=== PATIENT | female | born 1975 | race African-American/Black ===

== ENCOUNTER 2023-08-17 21:41 | Inpatient (IN) ==
--- NOTE | 2023-08-17 22:44 | Emergency Department Note ---
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 The patient states that about a week ago, she developed shortness of breath and fevers. She states she stayed in a hotel room over the weekend and when the fever broke on Monday, she returned to the road. She states that she has still had chills and persistent shortness of breath. She ran out of her second albuterol inhaler she has gone through 1 about a month about 2 to 3 days ago. She states that she has been using Advair and OTC Primatene mist frequently for her shortness of breath symptoms. Today when she got to a store, she states by the time she got from her truck to the front door of the store, she had to send somebody to her truck to get the OTC inhaler for her to get back. She states she is having pain in her chest. She has not had any further fevers. She states that she has been hospitalized frequently for pneumonia intermittently throughout the past year and feels that she is still experiencing pneumonia symptoms. The patient states her most recent hospitalization was in May in [place]. Pt. reports her O2 has been low. She states she is coughing up "heavy mucous". REVIEW OF SYSTEMS: A 10 system review of systems was performed with positives and pertinent negatives listed in the history of present illness. All other systems were reviewed and are negative. ALLERGIES: NKDA PHYSICAL EXAM: VITALS: Vitals are noted on the nurse's note and reviewed by myself. Patient is hypoxic with an O2 saturation of 88% on room air. She is afebrile. GENERAL: This is a 48 year old female, in no acute distress, nondiaphoretic, well-developed well-nourished. SKIN: The skin was without rashes, erythema, edema, or bruising. There is no tenting of the skin. Capillary refill less than 2 seconds. HEAD: Normocephalic atraumatic. EYES: Conjunctivae without injection, sclerae without icterus. NOSE: Patent, turbinates without inflammation or discharge. No sinus tenderness. MOUTH: Mucous membranes moist. Tonsils are not enlarged. Pharynx without erythema or exudate. Uvula midline. Airway patent. Tongue does not deviate. NECK: Supple without nuchal rigidity. No lymphadenopathy. Cervical spine is nontender. No JVD. HEART: Regular rate and rhythm without murmurs gallops or rubs. LUNGS: Diffuse wheezing and rhonchi. +Retractions and accessory muscle use. Pt. is tripoding. MUSCULOSKELETAL: No muscle atrophy, erythema, or edema noted. Full range of motion without joint tenderness in all extremities. No tenderness to palpation. Normal gait. Strength 5/5 throughout. Negative Homans' sign bilaterally NEURO: Patient was alert and oriented to person place and time. Normal sensation to light and sharp touch. Deep tendon reflexes 2+ throughout. No focal neurological deficits. An order was placed for continuous cardiac care unit nurse. The monitor showed a sinus tachycardia at a ventricular rate of 102 bpm, per my interpretation. EKG was reviewed by myself and found to be Sinus Tachycardia at a rate of 103 beats per minute and per my interpretation reveals no ST elevation or depression. No T wave inversion. No prior EKG available for comparison. Imaging as interpreted by myself and the radiologist revealed no acute findings on CXR, CTA chest with concern for patchy opacities, likely consistent with pneumonia, with radiologist interpretation as above. I agree with the radiologist's findings as based upon my independent interpretation. EMERGENCY DEPARTMENT COURSE: The patient was seen and evaluated as above. The patient presents with progressing shortness of breath over several weeks. 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 The patient does have a history of pneumonia, COPD, and asthma. She states that she has not been to see her PCP or get on any maintenance medications for greater than a year. On initial examination, the patient was tachypneic, tripoding, using accessory muscles for breathing. Lungs with coarse breath sounds, wheezing and rhonchi diffusely. Patient medicated with IV Solu-Medrol, fluids, DuoNeb treatment. IV access obtained, labs drawn. Per my interpretation, no leukocytosis, anemia, thrombocytopenia. Renal, hepatic function, and electrolytes without significant abnormality. INR 1.1. VBG without acute abnormality. Troponin less than 2.3. Respiratory bio fire testing negative for acute abnormality Patient did have a recent febrile illness prior to the onset of the shortness of breath. She has run out of her albuterol inhalers. She has been using Primatene mist and Advair without resolution. Patient was hypoxic on initial evaluation. This did seem to improve with administration of Solu-Medrol and DuoNeb treatment. On reevaluation, the diffuse wheezing has improved, but has not resolved. The patient was given a second DuoNeb treatment. CT angiogram of the chest was completed and negative for PEs. This did show evidence of scattered irregular patchy groundglass opacities noted throughout the lungs suspicious for bilateral pneumonia. Patient was again reevaluated. She states her breathing feels much better, but she is now complaining of back pain from the bed positioning. She has very mild wheezing diffusely on my examination. She remains tachycardic in the low 100s. She is no longer hypoxic, but is only 90 to 92% on room air. Did recommend admission due to the patient's symptoms I discussed the case [facility] He did agree to see and evaluate the patient for admission. Please see his dictation regarding ongoing management and care of this patient. Case was discussed with the attending physician. I attest that I have personally reviewed the patient medication list. I attest that I have reviewed the patient's blood pressure and it was found to be hypertensive GCS: 15 In the evaluation and treatment of this patient the following differential diagnoses were entertained: Reactive airway disease, pneumonia, pneumothorax, COPD, CHF, infections, cardiac ischemia, pulmonary embolism, musculoskeletal, gastrointestinal, as well as other pathologies. The chart was completed utilizing [employer] Speech voice recognition software. Grammatical errors, random word insertions, pronoun errors, and incomplete sentences are an occasional consequence of this system due to software limitations, ambient noise, and hardware issues. Any formal questions or concerns about the content, text, or information contained within the body of this dictation should be directly addressed to the provider for clarification. Past Med/Surg History Medical History No pertinent past medical history Social History Smoking Status: Current every day smoker Preferred Language: Vietnamese Feels Safe at Home: Yes Allergies Allergies Allergy/AdvReac Type Severity Reaction Status Date / Time No Known Allergies Allergy Verified 08/17/23 23:52 Home Meds Home Medications Medication Instructions Recorded Confirmed albuterol sulfate 90 mcg/actuation 2 puff inhalation DIRECTED PRN 08/17/23 08/17/23 aerosol inhaler Shortness Of Breath Or Wheezing fluticasone 250 mcg-salmeterol 50 1 inh inhalation DAILY 08/18/23 08/18/23 mcg/dose blistr powdr for inhalation Results & Data (ED) Vital Signs Vital Signs - 24 hr 08/17/23 21:45 08/17/23 21:52 08/17/23 22:40 Temperature 36.2 C L Temperature Source Temporal Artery Scan Pulse Rate 117 H 108 H Pulse Rate [Apical] Respiratory Rate 20 Respiratory Effort / Characteristics Non-Labored Spontaneous Respiratory Depth Normal Respiratory Pattern Blood Pressure 106/78 Blood Pressure [Left Arm] Blood Pressure Mean 87 Blood Pressure Mean [Left Arm] Blood Pressure Position [Left Arm] Pulse Oximetry 88 L 88 L Oxygen Delivery Method Room Air Nasal Cannula Oxygen Flow Rate 0 Sepsis Recent Fever Within 48 Hours Yes Sepsis New/Unexplained Change in Mental Status No Sepsis Action Taken by Nursing No Action Required Oxygen Flow Rate - Titration 2 Pulse Oximetry Post Tiitration 100 08/17/23 23:05 08/17/23 23:43 08/18/23 02:02 Temperature Temperature Source Pulse Rate Pulse Rate [Apical] 94 H 102 H Respiratory Rate 24 22 Respiratory Effort / Characteristics Non-Labored Spontaneous Non-Labored Spontaneous Respiratory Depth Normal Normal Respiratory Pattern Regular Regular Blood Pressure Blood Pressure [Left Arm] 129/77 141/94 H Blood Pressure Mean Blood Pressure Mean [Left Arm] 94 109 Blood Pressure Position [Left Arm] Sitting Pulse Oximetry 100 100 91 Oxygen Delivery Method Nasal Cannula Nasal Cannula Room Air Oxygen Flow Rate 3 3 Sepsis Recent Fever Within 48 Hours Sepsis New/Unexplained Change in Mental Status Sepsis Action Taken by Nursing Oxygen Flow Rate - Titration Pulse Oximetry Post Tiitration Laboratory Data 08/17/23 22:30 08/17/23 22:30 Lab Results 08/17/23 08/17/23 Range/Units 22:30 22:58 WBC 9.05 (4.8-10.8) K/ul RBC 5.05 (4.20-5.40) M/uL Hgb 13.9 (12.0-16.0) g/dl Hct 43.8 (37.0-47.0) % MCV 86.7 (80.0-100.0) fL MCH 27.5 (25.0-34.0) pg MCHC 31.7 L (32.0-36.0) g/dL RDW Std Deviation 44.9 (36.4-46.3) fL RDW Coeff of Anjel 14.2 (11.5-14.5) % Plt Count 272 (130-400) K/uL MPV 9.9 (9.4-12.4) fL Immature Gran % (Auto) 0.3 % Neut % (Auto) 51.3 % Lymph % (Auto) 28.3 % [place] % (Auto) 6.0 % Eos % (Auto) 13.3 % Baso % (Auto) 0.8 % Neut # (Auto) 4.65 (1.40-6.50) K/uL Lymph # (Auto) 2.56 (1.20-3.40) K/uL [place] # (Auto) 0.54 (0.11-0.59) K/uL Eos # (Auto) 1.20 H (0.00-0.50) K/uL Baso # (Auto) 0.07 (0.00-0.20) K/uL Immature Gran # (Auto) 0.03 (0.01-0.20) K/uL PT 11.9 (9.0-12.0) Seconds INR 1.1 (0.9-1.1) APTT 31 (21-31) Seconds PTT Ratio 1.1 VBG pH 7.37 (7.36-7.41) VBG pCO2 50 (38-50) mmHg VBG pO2 39 mmHg VBG HCO3 29 mmol/L VBG O2 Saturation < 60.0 % VBG Base Excess 2.7 mEq/L Sodium 141 (136-145) mmol/L Potassium 3.8 (3.5-5.1) mmol/L Chloride 108 H (98-107) mmol/L Carbon Dioxide 26 (21-32) mmol/L Anion Gap 7 (3-11) BUN 10 (6-23) mg/dl Creatinine 0.77 (0.6-1.2) mg/dl Est Cr Clr Drug Dosing 89.2 ml/min Est GFR ( Amer) 104.3 ml/min Est GFR (Non-Af Amer) 90.0 ml/min BUN/Creatinine Ratio 13.0 (10-20) Glucose 97 (70-99(Fasting)) mg/dl Calcium 9.1 (8.6-10.3) mg/dl Total Bilirubin 0.3 (0.2-1.0) mg/dl AST 15 (13-39) U/L ALT 11 (7-52) U/L Alkaline Phosphatase 99 (34-104) U/L Troponin I High Sens < 2.3 (0-14) pg/ml Total Protein 7.6 (6.0-8.3) gm/dl Albumin 4.1 (3.4-5.0) gm/dl Globulin 3.5 (2.5-4.0) gm/dl Albumin/Globulin Ratio 1.2 (0.9-2) Adenovirus (PCR) Not Detected (NotDetected) B. pertussis DNA (PCR) Not Detected (NotDetected) B.parapertussis DNA PCR Not Detected (NotDetected) C. pneumoniae DNA (PCR) Not Detected (NotDetected) Coronavirus OC43 (PCR) Not Detected (NotDetected) Coronavirus HKU1 (PCR) Not Detected (NotDetected) Coronavirus 229E (PCR) Not Detected (NotDetected) SARS-CoV-2 (PCR) Not Detected (NotDetected) Coronavirus NL63 (PCR) Not Detected (NotDetected) Human Metapneumovir PCR Not Detected (NotDetected) Influenza Type A (PCR) Not Detected (NotDetected) Influenza Type B (PCR) Not Detected (NotDetected) M. pneumoniae (PCR) Not Detected (NotDetected) Parainfluenza 1 (PCR) Not Detected (NotDetected) Parainfluenza 2 (PCR) Not Detected (NotDetected) Parainfluenza 3 (PCR) Not Detected (NotDetected) Parainfluenza 4 (PCR) Not Detected (NotDetected) RSV (PCR) Not Detected (NotDetected) Entero/Rhino (PCR) Not Detected (NotDetected) Administered Medications Discontinued Medications Acetaminophen (Acetaminophen 500 Mg Tab) 1,000 mg PO NOW STA Stop: 08/18/23 02:19 Last Admin: 08/18/23 02:30 Dose: 1,000 mg Documented By: SHAMIR Albuterol (Albut/Ipratrop 3mg/0.5mg Neb 3 Ml Vial) 3 ml INH NOW STA Stop: 08/17/23 22:38 Last Admin: 08/17/23 22:49 Dose: 3 ml Documented By: SHAMIR Albuterol (Albut/Ipratrop 3mg/0.5mg Neb 3 Ml Vial) 3 ml NEB NOW STA; Protocol Stop: 08/18/23 00:48 Last Admin: 08/18/23 01:01 Dose: 3 ml Documented By: SHAMIR Sodium Chloride (Nss) 1,000 mls @ 999 mls/hr IV .Q1H1M STA Stop: 08/17/23 23:37 Last Infusion: 08/17/23 23:50 Dose: Infused Documented By: Admin: 08/17/23 22:49 Dose: 999 mls/hr Documented By: SHAMIR Ioversol (Optiray 320 125ml) 125 ml IV ONCE ONE Stop: 08/18/23 00:57 Last Admin: 08/18/23 00:57 Dose: 115 ml Documented By: ILENE Methylprednisolone (Methylprednisolone 125 Mg/2 Ml Vial) 125 mg IV NOW STA Stop: 08/17/23 22:38 Last Admin: 08/17/23 22:49 Dose: 125 mg Documented By: SHAMIR Imaging Data Radiologist's Impression: Chest X-Ray 08/17/23 21:52 SINGLE VIEW CHEST CLINICAL HISTORY: Atypical chest pain. FINDINGS: A PA chest radiograph is obtained. No prior studies are available for comparison at the time of dictation. The cardiomediastinal silhouette is unremarkable. The lungs and pleural spaces are clear. No pneumothorax is seen. The bony thorax is grossly intact. IMPRESSION: No active disease in the chest. ACT 112: Negative or not required by law. Electronically signed by: Dov Ospina M.D. 08/18/2023 12:25 AM Chest CTA 08/18/23 00:47 Exam(s): CTA CHEST IV Amt: 115 ML OPTIRAY 320 EXAM: CT Angiography Chest With Intravenous Contrast CLINICAL HISTORY: sob, hypoxia, truck driver helper. TECHNIQUE: Axial computed tomographic angiography images of the chest with intravenous contrast. CTDI is 39.75 mGy and DLP is 790.18 mGy-cm. Automated exposure control was utilized for the study. A dose lowering technique was utilized adhering to the principles of ALARA. MIP reconstructed images were created and reviewed. COMPARISON: No relevant prior studies available. FINDINGS: Pulmonary arteries: There is no evidence for pulmonary embolism. Aorta: No acute findings. No thoracic aortic aneurysm. Lungs: Scattered irregular patchy ground-glass opacities noted throughout the lungs. No lobar consolidation. Pleural space: Unremarkable. No significant effusion. No pneumothorax. Heart: Unremarkable. No cardiomegaly. No significant pericardial effusion. Bones/joints: No acute fracture. No dislocation. Soft tissues: Unremarkable. Lymph nodes: Unremarkable. No enlarged lymph nodes. IMPRESSION: 1. There is no evidence for pulmonary embolism. 2. Scattered irregular patchy ground-glass opacities noted throughout the lungs. No lobar consolidation. Findings are nonspecific in appearance but are consistent with bilateral pneumonia, to include atypical bacterial and viral processes. No pleural effusion or pneumothorax. Electronically signed by: Shravan Rutledge MD 08/18/23 01:33 AM Discharge Plan Visit Data Chief Complaint: Shortness of Breath/Dyspnea Stated Complaint: SOB, CHEST PAIN, TACHYCARIDIA, FEVER/CHILLS ED Provider: Jorge L Cassidy ED Midlevel Provider: Li Ha Discharge Problem: Asthma with exacerbation, Hypoxia, COPD (chronic obstructive pulmonary disease) Patient Disposition: Admitted As Inpatient Forms Stand Alone Forms: [facility] Prescriptions Prescriptions: No Action albuterol sulfate 90 mcg/actuation Hfa Aerosol Inhaler 2 puff INHALATION DIRECTED PRN (Reason: Shortness Of Breath Or Wheezing) Rx Instructions: PER PT "NEED A REFILL, INHALER IS EMPTY". fluticasone propion-salmeterol 250-50 mcg/dose blister with device 1 inh INHALATION DAILY Referrals Referrals: PCP,NO [Primary Care Provider] -
[2023-08-17 22:46] LABS: Basophils # (auto) 0.07 K/uL (0.00-0.20); Basophils % (auto) 0.8 %; Eosinophils % (auto) 13.3 %; Hematocrit (blood only) 43.8 % (37.0-47.0); Hemoglobin 13.9 g/dl (12.0-16.0); Immature Granulocytes # (auto) 0.03 K/uL (0.01-0.20); Immature Granulocytes % (auto) 0.3 %; Lymphocytes # (auto) 2.56 K/uL (1.20-3.40); Lymphocytes % (auto) 28.3 %; Mean Corpuscular Hemoglobin 27.5 pg (25.0-34.0); Mean Corpuscular Hgb Conc 31.7 g/dL (32.0-36.0); Mean Corpuscular Volume 86.7 fL (80.0-100.0); Mean Platelet Volume 9.9 fL (9.4-12.4); Monocytes # (auto) 0.54 K/uL (0.11-0.59); Neutrophils # (auto) 4.65 K/uL (1.40-6.50); Neutrophils % (auto) 51.3 %; Platelet Count 272 K/uL (130-400); RDW Coefficient of Variation 14.2 % (11.5-14.5); RDW Standard Deviation 44.9 fL (36.4-46.3); Red Blood Count 5.05 M/uL (4.20-5.40); White Blood Count 9.05 K/ul (4.8-10.8)
[2023-08-17] MEDS: SODIUM CHLORIDE 0.9% 1,000 ML IV STA (22:49)
[2023-08-17] MEDS: methylPREDNISolone 125 MG/2 ML VIAL IV STA (22:49)
[2023-08-17] MEDS: ALBUT/IPRATROP 3MG/0.5MG NEB 3 ML VIAL INH STA (22:49)
[2023-08-17 23:01] LABS: Alanine Aminotransferase 11 U/L (7-52); Albumin Globulin Ratio 1.2 (0.9-2); Albumin Level 4.1 gm/dl (3.4-5.0); Alkaline Phosphatase 99 U/L (34-104); Anion Gap 7 (3-11); Aspartate Aminotransferase 15 U/L (13-39); Bilirubin,Total 0.3 mg/dl (0.2-1.0); Blood Urea Nitrogen 10 mg/dl (6-23); Calcium 9.1 mg/dl (8.6-10.3); Carbon Dioxide 26 mmol/L (21-32); Chloride 108 mmol/L (98-107); Creatinine Clr Calc Pharmacy 89.2 ml/min; Est GFR (African American) 104.3 ml/min; Globulin 3.5 gm/dl (2.5-4.0); Glucose 97 mg/dl (70-99(Fasting)); Potassium 3.8 mmol/L (3.5-5.1); Sodium 141 mmol/L (136-145); Total Protein 7.6 gm/dl (6.0-8.3)
[2023-08-17 23:04] LABS: Base Excess VBG 2.7 mEq/L; HCO3 VBG 29 mmol/L; Oxygen Saturation VBG < 60.0 %; PCO2 VBG 50 mmHg (38-50); PO2 VBG 39 mmHg; pH VBG 7.37 (7.36-7.41)
[2023-08-17 23:07] LABS: Troponin I High Sensitivity < 2.3 pg/ml (0-14)
[2023-08-17 23:11] LABS: INR 1.1 (0.9-1.1); Partial Thromboplastin Ratio 1.1; Partial Thromboplastin Time 31 Seconds (21-31); Prothrombin Time 11.9 Seconds (9.0-12.0)
[2023-08-17 23:58] LABS: Adenovirus PCR Not Detected (NotDetected); Bordetella parapertussis PCR Not Detected (NotDetected); Bordetella pertussis PCR Not Detected (NotDetected); Chlamydia pneumoniae PCR Not Detected (NotDetected); Coronavirus 229E PCR Not Detected (NotDetected); Coronavirus CoV-2 (COVID19)PCR Not Detected (NotDetected); Coronavirus HKU1 PCR Not Detected (NotDetected); Coronavirus NL63 PCR Not Detected (NotDetected); Coronavirus OC43PCR Not Detected (NotDetected); Human Metapneumovirus PCR Not Detected (NotDetected); Influenza A PCR Not Detected (NotDetected); Influenza B PCR Not Detected (NotDetected); Mycoplasma pneumoniae PCR Not Detected (NotDetected); Parainfluenza Virus 1 PCR Not Detected (NotDetected); Parainfluenza Virus 2 PCR Not Detected (NotDetected); Parainfluenza Virus 3 PCR Not Detected (NotDetected); Parainfluenza Virus 4 PCR Not Detected (NotDetected); Respiratory Syncytial VirusPCR Not Detected (NotDetected); Rhinovirus/Enterovirus PCR Not Detected (NotDetected)
--- NOTE | 2023-08-18 00:26 | XRay Report ---
SINGLE VIEW CHEST CLINICAL HISTORY: Atypical chest pain. FINDINGS: A PA chest radiograph is obtained. No prior studies are available for comparison at the chong e of dictation. The cardiomediastinal silhouette is unremarkable. The lungs and pleural spaces are cl ear. No pneumothorax is seen. The bony thorax is grossly intact. IMPRESSION: No active disease in the chest. ACT 112: Negative or not required by law. Electronically signed by: Dov Ospina M.D. 08/18/2023 12:25 AM
[2023-08-18] MEDS: OPTIRAY 320 125ml IV ONE (00:57)
[2023-08-18] MEDS: ALBUT/IPRATROP 3MG/0.5MG NEB 3 ML VIAL NEB STA (01:01)
--- NOTE | 2023-08-18 01:34 | CT Scan Report ---
Exam(s): CTA CHEST IV Amt: 115 ML OPTIRAY 320 EXAM: CT Angiography Chest With Intravenous Contrast CLINICAL HISTORY: sob, hypoxia, front load trash truck driver. TECHNIQUE: Axial computed tomographic angiography images of the chest with intravenous contrast. CTDI is 39.75 mGy and DLP is 790.18 mGy-cm. Automated exposure control was utilized for the study. A dose lowering technique was utilized adhering to the principles of ALARA. MIP reconstructed images were created and reviewed. COMPARISON: No relevant prior studies available. FINDINGS: Pulmonary arteries: There is no evidence for pulmonary embolism. Aorta: No acute findings. No thoracic aortic aneurysm. Lungs: Scattered irregular patchy ground-glass opacities noted throughout the lungs. No lobar consolidation. Pleural space: Unremarkable. No significant effusion. No pneumothorax. Heart: Unremarkable. No cardiomegaly. No significant pericardial effusion. Bones/joints: No acute fracture. No dislocation. Soft tissues: Unremarkable. Lymph nodes: Unremarkable. No enlarged lymph nodes. IMPRESSION: 1. There is no evidence for pulmonary embolism. 2. Scattered irregular patchy ground-glass opacities noted throughout the lungs. No lobar consolidation. Findings are nonspecific in appearance but are consistent with bilateral pneumonia, to include atypical bacterial and viral processes. No pleural effusion or pneumothorax. Electronically signed by: Shravan Rutledge MD 08/18/23 01:33 AM
[2023-08-18] MEDS: ACETAMINOPHEN 500 MG TAB PO STA (02:30)
--- NOTE | 2023-08-18 03:49 | History & Physical Report ---
Date of Service August 18, 2023 Assessment & Plan (1) COPD exacerbation: Plan: 48-year-old female with past med history significant for asthma, COPD comes with shortness of breath and found to be in COPD/asthma exacerbation and pneumonia. Patient states in the last 1 year this is her fifth admission. 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 In May while she was in train she became, acutely sick and she has to be life flighted to hospital in [place] where she was on CPAP and and was in the hospital for 6 days as per patient. Then she was supposed to see her PCP in [place] but because of [place] appointment was canceled and and she was back on road. Her next appointment with her PCP is on August 20. Last Monday she had high temperature of 102. The next few days she had low- grade fevers after that the fever subsided but she is having profuse sweating and constant coughing bringing up thick yellowish-green mucus. When she is coughing she is feeling dizzy. The chest is hurting and chest pain is more when coughing. Walking short distance making her short of breath. She ran out of her inhalers. She using [id number] inhaler which is not as effective. Looks like she still using Advair Diskus but using only 1 puff daily. Smokes 1 pack of cigarettes in a week. Currently after steroids and nebs treatment in the ER she is feeling better. She still has some chest discomfort. Was able to talk in full sentences and give her history. Hemodynamically stable. Last week she had had severe headaches. Currently no headache. Has runny nose. Has scratchy throat. Having nausea. Currently no abdominal pain. Somewhat constip ated. Denies any blood in the stools. Normal micturition. No swelling in the legs. COPD/asthma exacerbation Pneumonia on the CAT scan Respiratory bio fire negative Multiple admissions as per patient in last 1 year Ongoing tobacco abuse Will place on DuoNeb [id number] and as needed IV Solu-Medrol 40 mg 3 times daily IV Rocephin and IV azithromycin Will consult pulmonary in a.m. for further recommendations for recurrent admissions Close monitoring med/tele Tobacco abuse Needs counseling Hyperglycemia morning labs showed sugars in 300's gave one dose of iv insulin 4units started on lantus 6units daily for now and ISS follow hba1c levels Close monitor. DVT prophylaxis Lovenox Disposition Med/tele History of Present Illness Chief Complaint: Shortness of breath Primary Care Provider: NO PCP 48-year-old female with past med history significant for asthma, COPD comes with shortness of breath and found to be in COPD/asthma exacerbation and pneumonia. Patient states in the last 1 year this is her fifth admission. 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 In May while she was in train she became, acutely sick and she has to be life flighted to hospital in [place] where she was on CPAP and and was in the hospital for 6 days as per patient. Then she was supposed to see her PCP in [place] but because of [place] appointment was canceled and and she was back on road. Her next appointment with her PCP is on August 20. Last Monday she had high temperature of 102. The next few days she had low- grade fevers after that the fever subsided but she is having profuse sweating and constant coughing bringing up thick yellowish-green mucus. When she is coughing she is feeling dizzy. The chest is hurting and chest pain is more when coughing. Walking short distance making her short of breath. She ran out of her inhalers. She using [id number] inhaler which is not as effective. Looks like she still using Advair Diskus but using only 1 puff daily. Smokes 1 pack of cigarettes in a week. Currently after steroids and nebs treatment in the ER she is feeling better. She still has some chest discomfort. Was able to talk in full sentences and give her history. Hemodynamically stable. Last week she had had severe headaches. Currently no headache. Has runny nose. Has scratchy throat. Having nausea. Currently no abdominal pain. Somewhat constipated. Denies any blood in the stools. Normal micturition. No swelling in the legs. Past medical history. As mentioned above Past surgical history. Tonsillectomy Family history. Mother had CABG and sarcoidosis. Father had heart transplant and from heart attack Social history. Smokes 1 pack cigarette in a week for many years. Denies alcohol use, denies any drug use Allergies Allergy/AdvReac Type Severity Reaction Status Date / Time No Known Allergies Allergy Verified 08/17/23 23:52 Home Medications Medication Instructions Recorded Confirmed Type albuterol sulfate 90 mcg/actuation 2 puff inhalation DIRECTED PRN 08/17/23 08/17/23 History aerosol inhaler Shortness Of Breath Or Wheezing fluticasone 250 mcg-salmeterol 50 1 inh inhalation DAILY 08/18/23 08/18/23 History mcg/dose blistr powdr for inhalation Past Med/Surg History Medical History No pertinent past medical history Social History Smoking Status: Never smoker Hx Alcohol Use: No Hx Substance Use: No Preferred Language: Sudanese Communication Ability: Effective Senior Sales Manager Required: No Beliefs That Will Affect Care: None Feels Safe at Home: Yes Safety Concerns: Feels Safe At This Time Review of Systems Review of Systems: All systems reviewed & are unremarkable except as noted in HPI & below Physical Exam Physical Exam: General- Not in acute distress Head- atraumatic Eyes- PERRL. ENT- oropharynx clear Neck- supple, no JVD. Lungs- clear to auscultation bilateral wheezing present, No crackles Heart- regular rhythm; no murmur, no gallop. Abdomen- normal bowel sounds, soft, nontender, no distension. Extremities- no pretibial edema, no erythema seen. Neuro- alert, oriented ; PERRL, no facial palsy; no dysarthria; moves extremities. Skin- warm & dry Results & Data Results & Data Vital Signs (Past 12 Hours) Vital Signs Temp Pulse Pulse Resp BP BP Pulse Ox 08/18/23 02:02 102 H 22 141/94 H 91 08/17/23 23:43 94 H 24 129/77 100 08/17/23 23:05 100 08/17/23 22:40 108 H 08/17/23 21:52 88 L 08/17/23 21:45 36.2 C L 117 H 20 106/78 88 L O2 Del Method O2 Flow Rate 08/18/23 02:02 Room Air 08/17/23 23:43 Nasal Cannula 3 08/17/23 23:05 Nasal Cannula 3 08/17/23 22:40 08/17/23 21:52 Nasal Cannula 0 08/17/23 21:45 Room Air Diagnostic Findings Laboratory Results WBC 9.05 K/ul (4.8-10.8) 08/17/23 22:30 RBC 5.05 M/uL (4.20-5.40) 08/17/23 22: Hgb 13.9 g/dl (12.0-16.0) 08/17/23 22: Hct 43.8 % (37.0-47.0) 08/17/23 22: MCV 86.7 fL (80.0-100.0) 08/17/23 22: MCH 27.5 pg (25.0-34.0) 08/17/23: MCHC 31.7 g/dL (32.0-36.0) L 08/17/23: RDW Std Deviation 44.9 fL (36.4-46.3) 08/17/23: RDW Coeff of Anjel 14.2 % (11.5-14.5) 08/17/23 22: Plt Count 272 K/uL (130-400) 08/17/23 22: MPV 9.9 fL (9.4-12.4) 08/17/23: Immature Gran % (Auto) 0.3 % 08/17/23 22: Neut % (Auto) 51.3 % 08/17/23 22:30 Lymph % (Auto) 28.3 % 08/17/23 22:30 Garvin % (Auto) 6.0 % 08/17/23 22: Eos % (Auto) 13.3 % 08/17/23 22: Baso % (Auto) 0.8 % 08/17/23: Neut # (Auto) 4.65 K/uL (1.40-6.50) 08/17/23: Lymph # (Auto) 2.56 K/uL (1.20-3.40) 08/17/23: Garvin # (Auto) 0.54 K/uL (0.11-0.59) 08/17/23: Eos # (Auto) 1.20 K/uL (0.00-0.50) H 08/17/23 22: Baso # (Auto) 0.07 K/uL (0.00-0.20) 08/17/23: Immature Gran # (Auto) 0.03 K/uL (0.01-0.20) 08/17/23 22:30 PT 11.9 Seconds (9.0-12.0) 08/17/23 22:30 INR 1.1 (0.9-1.1) 08/17/23 22:30 APTT 31 Seconds (21-31) 08/17/23 22:30 PTT Ratio 1.1 08/17/23 22:30 VBG pH 7.37 (7.36-7.41) 08/17/23 22:58 VBG pCO2 50 mmHg (38-50) 08/17/23 22:58 VBG pO2 39 mmHg 08/17/23 22:58 VBG HCO3 29 mmol/L 08/17/23 22:58 VBG O2 Saturation < 60.0 % 08/17/23 22:58 VBG Base Excess 2.7 mEq/L 08/17/23 22:58 Sodium 141 mmol/L (136-145) 08/17/23 22:30 Potassium 3.8 mmol/L (3.5-5.1) 08/17/23 22:30 Chloride 108 mmol/L (98-107) H 08/17/23 22:30 Carbon Dioxide 26 mmol/L (21-32) 08/17/23 22:30 Anion Gap 7 (3-11) 08/17/23 22:30 BUN 10 mg/dl (6-23) 08/17/23 22:30 Creatinine 0.77 mg/dl (0.6-1.2) 08/17/23 22:30 Est Cr Clr Drug Dosing 89.2 ml/min 08/17/23 22:30 Est GFR ( Amer) 104.3 ml/min 08/17/23 22:30 Est GFR (Non-Af Amer) 90.0 ml/min 08/17/23 22:30 BUN/Creatinine Ratio 13.0 (10-20) 08/17/23 22:30 Glucose 97 mg/dl (70-99(Fasting)) 08/17/23 22:30 Calcium 9.1 mg/dl (8.6-10.3) 08/17/23 22:30 Total Bilirubin 0.3 mg/dl (0.2-1.0) 08/17/23 22:30 AST 15 U/L (13-39) 08/17/23 22:30 ALT 11 U/L (7-52) 08/17/23 22:30 Alkaline Phosphatase 99 U/L (34-104) 08/17/23 22:30 Troponin I High Sens < 2.3 pg/ml (0-14) 08/17/23 22:30 Total Protein 7.6 gm/dl (6.0-8.3) 08/17/23 22:30 Albumin 4.1 gm/dl (3.4-5.0) 08/17/23 22:30 Globulin 3.5 gm/dl (2.5-4.0) 08/17/23 22:30 Albumin/Globulin Ratio 1.2 (0.9-2) 08/17/23 22:30 Adenovirus (PCR) Not Detected (NotDetected) 08/17/23 22:58 B. pertussis DNA (PCR) Not Detected (NotDetected) 08/17/23 22:58 B.parapertussis DNA PCR Not Detected (NotDetected) 08/17/23 22:58 C. pneumoniae DNA (PCR) Not Detected (NotDetected) 08/17/23 22:58 Coronavirus OC43 (PCR) Not Detected (NotDetected) 08/17/23 22:58 Coronavirus HKU1 (PCR) Not Detected (NotDetected) 08/17/23 22:58 Coronavirus 229E (PCR) Not Detected (NotDetected) 08/17/23 22:58 SARS-CoV-2 (PCR) Not Detected (NotDetected) 08/17/23 22:58 Coronavirus NL63 (PCR) Not Detected (NotDetected) 08/17/23 22:58 Human Metapneumovir PCR Not Detected (NotDetected) 08/17/23 22:58 Influenza Type A (PCR) Not Detected (NotDetected) 08/17/23 22:58 Influenza Type B (PCR) Not Detected (NotDetected) 08/17/23 22:58 M. pneumoniae (PCR) Not Detected (NotDetected) 08/17/23 22:58 Parainfluenza 1 (PCR) Not Detected (NotDetected) 08/17/23 22:58 Parainfluenza 2 (PCR) Not Detected (NotDetected) 08/17/23 22:58 Parainfluenza 3 (PCR) Not Detected (NotDetected) 08/17/23 22:58 Parainfluenza 4 (PCR) Not Detected (NotDetected) 08/17/23 22:58 RSV (PCR) Not Detected (NotDetected) 08/17/23 22:58 Entero/Rhino (PCR) Not Detected (NotDetected) 08/17/23 22:58 Impressions Chest X-Ray 08/17/23 21:52 SINGLE VIEW CHEST CLINICAL HISTORY: Atypical chest pain. FINDINGS: A PA chest radiograph is obtained. No prior studies are available for comparison at the time of dictation. The cardiomediastinal silhouette is unremarkable. The lungs and pleural spaces are clear. No pneumothorax is seen. The bony thorax is grossly intact. IMPRESSION: No active disease in the chest. ACT 112: Negative or not required by law. Electronically signed by: Dov Ospina M.D. 08/18/2023 12:25 AM Chest CTA 08/18/23 00:47 Exam(s): CTA CHEST IV Amt: 115 ML OPTIRAY 320 EXAM: CT Angiography Chest With Intravenous Contrast CLINICAL HISTORY: sob, hypoxia, boom truck driver. TECHNIQUE: Axial computed tomographic angiography images of the chest with intravenous contrast. CTDI is 39.75 mGy and DLP is 790.18 mGy-cm. Automated exposure control was utilized for the study. A dose lowering technique was utilized adhering to the principles of ALARA. MIP reconstructed images were created and reviewed. COMPARISON: No relevant prior studies available. FINDINGS: Pulmonary arteries: There is no evidence for pulmonary embolism. Aorta: No acute findings. No thoracic aortic aneurysm. Lungs: Scattered irregular patchy ground-glass opacities noted throughout the lungs. No lobar consolidation. Pleural space: Unremarkable. No significant effusion. No pneumothorax. Heart: Unremarkable. No cardiomegaly. No significant pericardial effusion. Bones/joints: No acute fracture. No dislocation. Soft tissues: Unremarkable. Lymph nodes: Unremarkable. No enlarged lymph nodes. IMPRESSION: 1. There is no evidence for pulmonary embolism. 2. Scattered irregular patchy ground-glass opacities noted throughout the lungs. No lobar consolidation. Findings are nonspecific in appearance but are consistent with bilateral pneumonia, to include atypical bacterial and viral processes. No pleural effusion or pneumothorax. Electronically signed by: Shravan Rutledge MD 08/18/23 01:33 AM ECG Additional Comments: ECG sinus tachycardia rate 103. No acute ST changes seen. Code Status & VTE Plan VTE Prophylaxis Plan VTE Prophylaxis will be ordered: Yes
[2023-08-18] MEDS: MoRPHine SULFATE 4 MG/ML 1 ML CARP\\VIAL IV STA (04:06)
[2023-08-18] MEDS ORDERED: POLYETHYLENE (MIRALAX) 17 GM PACK PO PRN (04:27)
[2023-08-18] MEDS ORDERED: NITROGLYCERIN SL 0.4 MG/TAB TAB SL PRN (04:27)
[2023-08-18] MEDS ORDERED: ALBUT/IPRATROP 3MG/0.5MG NEB 3 ML VIAL NEB PRN ×2 (04:27→14:24)
[2023-08-18] MEDS: methylPREDNISolone 40 MG in SYRINGE 0 ML IV SCH (04:51)
[2023-08-18] MEDS: cefTRIAXone SODIUM 2,000 MG in DEXTROSE 5 % MINI-B 50 ML IV SCH (04:52)
[2023-08-18] MEDS: AZITHROMYCIN 500 MG in DEXTROSE 5% 250 ML IV SCH (05:29)
[2023-08-18] MEDS: ALBUT/IPRATROP 3MG/0.5MG NEB 3 ML VIAL NEB SCH (07:16)
[2023-08-18 07:19] LABS: Basophils # (auto) 0.01 K/uL (0.00-0.20); Basophils % (auto) 0.3 %; Eosinophils # (auto) 0.01 K/uL (0.00-0.50); Eosinophils % (auto) 0.3 %; Hematocrit (blood only) 39.7 % (37.0-47.0); Hemoglobin 12.9 g/dl (12.0-16.0); Immature Granulocytes # (auto) 0.01 K/uL (0.01-0.20); Immature Granulocytes % (auto) 0.3 %; Lymphocytes # (auto) 0.54 K/uL (1.20-3.40); Mean Corpuscular Hemoglobin 28.2 pg (25.0-34.0); Mean Corpuscular Hgb Conc 32.5 g/dL (32.0-36.0); Mean Corpuscular Volume 86.7 fL (80.0-100.0); Mean Platelet Volume 10.1 fL (9.4-12.4); Monocytes # (auto) 0.03 K/uL (0.11-0.59); Monocytes % (auto) 0.8 %; Neutrophils # (auto) 3.26 K/uL (1.40-6.50); Neutrophils % (auto) 84.3 %; Platelet Count 243 K/uL (130-400); Red Blood Count 4.58 M/uL (4.20-5.40); White Blood Count 3.86 K/ul (4.8-10.8)
[2023-08-18] MEDS ORDERED: GLUCAGON FOR INJ 1 MG VIAL SQ PRN (07:36)
[2023-08-18] MEDS ORDERED: GLUCOSE 40% GEL 15 GM TUBE PO PRN (07:36)
[2023-08-18] MEDS ORDERED: GLUCOSE 10 TAB/TUBE PO PRN (07:36)
[2023-08-18] MEDS ORDERED: DEXTROSE 50% 50 ML SYRINGE IV PRN (07:36)
[2023-08-18] MEDS ORDERED: CARBOHYDRATES FOR HYPOGLYCEMIA PO PRN (07:36)
[2023-08-18 07:37] LABS: Anion Gap 10 (3-11); BUN Creatinine Ratio 12.7 (10-20); Blood Urea Nitrogen 10 mg/dl (6-23); Calcium 9.2 mg/dl (8.6-10.3); Carbon Dioxide 22 mmol/L (21-32); Chloride 106 mmol/L (98-107); Creatinine Clr Calc Pharmacy 86.6 ml/min; Est GFR (African American) 101.2 ml/min; Est GFR (Non-African American) 87.3 ml/min; Glucose 319 mg/dl (70-99(Fasting)); Magnesium 1.8 mg/dl (1.7-2.4); Potassium 4.2 mmol/L (3.5-5.1); Sodium 138 mmol/L (136-145)
[2023-08-18] MEDS: INSULIN HUMAN REGULAR PER UNIT 4 UNITS in SYRINGE 3.96 ML IV ONE (08:13)
[2023-08-18 09:15] LABS: Troponin I High Sensitivity < 2.3 pg/ml (0-14)
[2023-08-18] MEDS: ENOXAPARIN INJ 40 MG/0.4 ML SYR SQ SCH (09:59)
[2023-08-18] MEDS: LANTUS PER UNIT CHARGE SQ SCH (10:11)
[2023-08-18 10:12] LABS: Estimated Average Glucose 128 mg/dl; Hemoglobin A1C 6.1 % (4.5-5.6)
[2023-08-18] MEDS: ACETAMINOPHEN 325 MG TAB PO PRN (10:12)
[2023-08-18] MEDS: INSULIN ASPART PER UNIT CHARGE SC SCH (11:56)
--- NOTE | 2023-08-18 13:03 | Electrocardiogram Report ---
Test Reason : Blood Pressure : / mmHG Vent. Rate : 103 BPM Atrial Rate : 103 BPM P-R Int : 128 ms QRS Dur : 062 ms QT Int : 328 ms P-R-T Axes : 073 056 060 degrees QTc Int : 429 ms Sinus tachycardia Otherwise normal ECG No previous ECGs available Confirmed by Blayne Mays ([id number]) on 08/18/2023 1:03:25 PM Referred By: REFERRED SELF Confirmed By:Blayne Mays
--- NOTE | 2023-08-18 14:18 | Pulmonary Consultation ---
Date of Consultation August 18, 2023 Assessment & Plan (1) Asthma with exacerbation: She has very poorly controlled asthma due to ongoing tobacco abuse. We discussed that tobacco abuse cessation will be the single most important aspect and improving her respiratory symptoms overall and helping preserve her lung function. She is going to work on smoking cessation and follow-up with pulmonary medicine in her home [facility] [place]. For the time being, I would recommend continuing with methylprednisone 40 mg IV 3 times daily. I have added formoterol and budesonide nebs. Agree with continuing azithromycin given the groundglass opacities noted on CT chest. She certainly may have an element of COPD given her extensive tobacco abuse history and severity of her symptoms. She would benefit from outpatient PFTs, NIOX testing and evaluation for Th2 mediated asthma. I will also add Zyrtec and montelukast to her regimen given the high suspicion of allergic asthma. Upon discharge I would recommend escalating her inhaler to a dose of fluticasone/salmeterol 500/50, 1 puff twice daily. Albuterol every 4 hours as needed. Singulair 10 mg daily, Zyrtec 10 mg daily. Additionally, upon discharge, she can transition to prednisone 40 mg daily for an additional 5 days. Asthma severity: severe Asthma persistence: persistent Qualified Code(s): J45.51 - Severe persistent asthma with (acute) exacerbation (2) Tobacco abuse counseling: We discussed smoking cessation extensively and potential smoking cessation aids such as nicotine patches and lozenges. (3) Allergic rhinitis with postnasal drip: I think her allergic rhinitis and sinus symptoms are playing a significant role in her recurrent exacerbations. She is at high risk for nasal polyposis. [facility]. For the time being, we will start the patient on Flonase, saline nasal sprays and azelastine. She notes that she has not been compliant with nasal sprays in the past as they are uncomfortable to her. She also notes that Flonase has not helped in the past, but she has only used it an intermittent dosing. I stressed the importance of using Flonase consistently as it is a topical corticosteroid which needs time to become effective. (4) Sinus congestion: See comments above. Will initiate Flonase, saline sprays and azelastine. (5) Changing sleep-work schedule, affecting sleep: We extensively discussed her trouble with falling asleep and her work schedule effecting her sleep hygiene. I stressed the importance of trying to fall asleep at a regular time is much as possible and waking up at the same time is much as possible. I also stressed the importance of limiting screen time and good sleep hygiene. She did ask about prescription sleep agents. I discouraged the use of prescription sleep agents for long periods of time as they can be habit-forming and ultimately negatively affects her sleep in the long run. (6) Abnormal CT scan, chest: We discussed her nonspecific groundglass opacities noted on CT chest. I suspect this is viral or inflammatory in nature. She does have some mild hilar and mediastinal lymphadenopathy. We discussed that this may potentially represent sarcoidosis or simply be reactionary to an acute infectious state. She would benefit from an outpatient follow-up CT chest in 6 weeks with contrast to further evaluate the groundglass opacities and ensure that the lymphadenopathy has improved. If she has persistent lymphadenopathy, I would recommend endobronchial ultrasound with transbronchial needle aspirations to evaluate for sarcoid/granulomas. Plan Thank you for the consult. Pulmonary will continue to follow. History of Present Illness Reason for Consultation: Asthma exacerbation Attending Physician: Lisa Lugo MD History of Present Illness 48-year-old female with a past medical history of tobacco abuse and asthma who presents to the hospital due to ongoing shortness of breath. Patient notes about a week ago she was having low-grade fevers and profuse sweating. She has been having ongoing cough with occasional yellow sputum production. She notes that she has had 4 other hospitalizations in the past year and different states due to similar symptoms. She is a long-short haul driver and notes that she is not able to have consistent follow-ups with her primary care doctor. She lives in [place] and is frequently on the road as noted above. She notes that she smokes about a pack of cigarettes once a week. She has an Advair inhaler which she uses 1 puff twice daily since December 2022. She is on a dose of 250/50 mcg. She also notes that she uses albuterol very frequently during the day. She actually ran out of albuterol at 1 point and used a Primatene inhaler that was available [id number]. She does not have a nebulizer. She also notes that she has been dealing with intermittent palpitations and severe pains in her back and chest area due to coughing. She relates that her pain has been very frustrating this hospitalization and that she feels at times her pain has not been adequately controlled while hospitalized this admission. She notes a strong family history of tobacco abuse and coronary artery disease. She notes that her mother is sarcoidosis and her father had a heart transplant related to coronary artery disease. Allergies Allergy/AdvReac Type Severity Reaction Status Date / Time No Known Allergies Allergy Verified 08/17/23 23:52 Home Medications Medication Instructions Recorded Confirmed Type albuterol sulfate 90 mcg/actuation 2 puff inhalation DIRECTED PRN 08/17/23 08/17/23 History aerosol inhaler Shortness Of Breath Or Wheezing fluticasone 250 mcg-salmeterol 50 1 inh inhalation DAILY 08/18/23 08/18/23 History mcg/dose blistr powdr for inhalation Patient History Medical History (Updated 08/18/23 @ 14:26 by Mina Mahan MD) Abnormal CT scan, chest Changing sleep-work schedule, affecting sleep Sinus congestion Allergic rhinitis with postnasal drip Tobacco abuse counseling No pertinent past medical history Social History Smoking Status: Never smoker Hx Alcohol Use: No Hx Substance Use: No Preferred Language: Nepalese Communication Ability: Effective Top Former Required: No Beliefs That Will Affect Care: None Feels Safe at Home: Yes Safety Concerns: Feels Safe At This Time Review of Systems Review of Systems: All systems reviewed & are unremarkable except as noted in HPI & below Physical Exam Physical Exam: Constitutional: Patient appears to be of their stated age. Patient is in no apparent distress. Patient is well-developed. Eyes: Pupils are equal round and reactive to light. Conjunctivae are normal. Anicteric sclera. Ears nose, mouth and throat: Deferred Neck: Trachea is midline. Visual inspection is normal. Respiratory: Diffuse expiratory wheeze. No increased work of breathing. Cardiovascular: Regular rate and rhythm. No murmurs. No edema. Gastrointestinal: Normal bowel sounds, soft, nontender and nondistended. No hepatosplenomegaly noted. Musculoskeletal: No cyanosis. Patient is able to move all extremities. Strength is 5 out of 5 in the upper and lower extremities. Skin: No rashes, warm dry and intact. Neurologic: No obvious focal neurological deficits seen. Psychiatric: Alert and oriented x3 with a euthymic affect. Results & Data Results & Data Vital Signs (Past 12 Hours) Vital Signs Temp Pulse Pulse Resp BP Pulse Ox O2 Del Method 08/18/23 10:56 36.5 C 97 H 21 142/90 H 92 Room Air 08/18/23 10:27 92 H 18 91 Room Air 08/18/23 09:15 37.0 C 93 H 18 119/79 93 Room Air 08/18/23 09:15 Room Air 08/18/23 07:16 98 H 17 98 Room Air 08/18/23 06:07 Room Air 08/18/23 04:00 101 H 18 141/84 H 95 Room Air 08/18/23 03:17 101 H PG Care Time/CCT Total # of Minutes Spent Total Time Spent with Patient: Total time spent is greater than 50% in coordination of care (as documented) at patient's floor/unit and/or counseling patient: Coding Level of Care Code 76978 IN/OBS CONSULT LVL 5,80M Diagnoses Severe persistent asthma with acute exacerbation J45.51 Asthma severity: severe Asthma persistence: persistent Tobacco abuse counseling Z71.6 Allergic rhinitis with postnasal drip J30.9; R09.82 Sinus congestion R09.81 Changing sleep-work schedule, affecting sleep G47.[address] scan, chest R93.89
[2023-08-18] MEDS: FLUTICASONE PROPIONATE NA SPR 16 GM BTL SCH (15:53)
[2023-08-18] MEDS: AZELASTINE HCL 0.1% NASAL 200 SPRAYS/27,400 MCG BTL SCH (15:53)
[2023-08-18] MEDS: LIDOCAINE 5% 1 PATCH TD STA (15:54)
[2023-08-18] MEDS: CETIRIZINE HCL 10 MG TABLET PO SCH (15:54)
[2023-08-18] MEDS: ACETAMINOPHEN 1,000 MG/100 ML VIAL IV STA (15:55)
[2023-08-18] MEDS ORDERED: hydrOXYzine HCl 25 MG TAB PO PRN (16:39)
--- NOTE | 2023-08-18 16:44 | Communication Note ---
Date of Service: August 18, 2023 Patient evaluated at bedside. Reports she is feeling much better. Reports chronic low back pain which is exacerbated from coughing. Willing to trial Flexeril/gabapentin, with plans to resume home gabapentin regimen 100mg BID Sitting comfortably in bed, mild discomfort from back pain labs reviewed. POC glucose much better control. #Severe persistent Asthma Exacerbation #Tobacco Use Continue methylprednisone 40mg q8h Formoterol and budesonide nebs added Continue Azithro Pulm added zyrtec, montelukast Plan to increase inhaler fluticasone/salmeterol 500/50, 1 puff twice daily. Albuterol every 4 hours as needed, transition to prednisone 40 mg daily for an additional 5 days. #Prediabetes -A1C 6.1% lifestyle modifications discussed Formal progress note tomorrow
[2023-08-18] MEDS: GABAPENTIN 300 MG CAP PO STA (16:48)
[2023-08-18] MEDS: MONTELUKAST SODIUM 10 MG TABLET PO SCH (19:33)
[2023-08-18] MEDS: GABAPENTIN 100 MG CAP PO SCH (19:33)
[2023-08-18] MEDS: SODIUM CHLORIDE 0.65% NA SOLN 45 ML (OCEAN) SCH (19:35)
[2023-08-18] MEDS: BUDESONIDE 0.5 MG/2 ML VIAL (PULMICORT) NEB SCH (19:38)
[2023-08-18] MEDS: FORMOTEROL 20 MCG/2 ML VIAL NEB SCH (19:38)
[2023-08-18] MEDS: CYCLOBENZAPRINE HCL 10 MG TAB PO STA (19:52)
[2023-08-18] MEDS: CYCLOBENZAPRINE HCL 10 MG TAB PO ONE (19:53)
[2023-08-18] MEDS: MoRPHine SULFATE 2 MG/ML CARP IV PRN (20:27)
[2023-08-19] MEDS: ACETAMINOPHEN 500 MG TAB PO PRN (03:26)
[2023-08-19 06:52] LABS: BUN Creatinine Ratio 16.5 (10-20); Calcium 9.4 mg/dl (8.6-10.3); Creatinine Clr Calc Pharmacy 92.7 ml/min; Est GFR (African American) 101.2 ml/min; Est GFR (Non-African American) 87.3 ml/min; Magnesium 1.9 mg/dl (1.7-2.4); Phosphorus 4.1 mg/dl (2.5-4.9); Potassium 4.2 mmol/L (3.5-5.1)
[2023-08-19 06:58] LABS: Hematocrit (blood only) 39.6 % (37.0-47.0); Mean Corpuscular Hemoglobin 28.2 pg (25.0-34.0); Mean Corpuscular Hgb Conc 32.8 g/dL (32.0-36.0); Mean Corpuscular Volume 85.9 fL (80.0-100.0); Mean Platelet Volume 10.4 fL (9.4-12.4); Platelet Count 283 K/uL (130-400); RDW Coefficient of Variation 14.1 % (11.5-14.5); RDW Standard Deviation 43.8 fL (36.4-46.3); Red Blood Count 4.61 M/uL (4.20-5.40)
[2023-08-19] MEDS: LIDOCAINE 5% 1 PATCH TD SCH (10:18)
--- NOTE | 2023-08-19 10:55 | Pulmonology Progress Note ---
Date of Service August 19, 2023 Assessment & Plan (1) Asthma with exacerbation: Plan: She has very poorly controlled asthma due to ongoing tobacco abuse. We discussed that tobacco abuse cessation will be the single most important aspect and improving her respiratory symptoms overall and helping preserve her lung function. She is going to work on smoking cessation and follow-up with pulmonary medicine in her home state [facility]. Continue methylprednisone at a dose of 40 mg 3 times daily for today and then transition to p.o. prednisone 40 mg daily starting tomorrow. Continue nebulized budesonide and formoterol. She certainly may have an element of COPD given her extensive tobacco abuse history and severity of her symptoms. She would benefit from outpatient PFTs, NIOX testing and evaluation for Th2 mediated asthma. Continue Zyrtec and montelukast. Upon discharge I would recommend escalating her inhaler to a dose of fluticasone/salmeterol 500/50, 1 puff twice daily. Albuterol every 4 hours as needed. Singulair 10 mg daily, Zyrtec 10 mg daily. Prednisone taper as outpatient. Discussed with hospitalist service. Asthma persistence: persistent Asthma severity: severe Qualified Code(s): J45.51 - Severe persistent asthma with (acute) exacerbation (2) Tobacco abuse counseling: Plan: We discussed smoking cessation extensively and potential smoking cessation aids such as nicotine patches and lozenges. (3) Allergic rhinitis with postnasal drip: Plan: I think her allergic rhinitis and sinus symptoms are playing a significant role in her recurrent exacerbations. She is at high risk for nasal polyposis. She may be a good candidate for Dupixent as an outpatient. For the time being, we will start the patient on Flonase, saline nasal sprays and azelastine. She notes that she has not been compliant with nasal sprays in the past as they are uncomfortable to her. She also notes that Flonase has not helped in the past, but she has only used it an intermittent dosing. I stressed the importance of using Flonase consistently as it is a topical corticosteroid which needs time to become effective. (4) Sinus congestion: Plan: See comments above. Will initiate Flonase, saline sprays and azelastine. (5) Abnormal CT scan, chest: Plan: We discussed her nonspecific groundglass opacities noted on CT chest. I suspect this is viral or inflammatory in nature. She does have some mild hilar and mediastinal lymphadenopathy. We discussed that this may potentially represent sarcoidosis or simply be reactionary to an acute infectious state. She would benefit from an outpatient follow-up CT chest in 6 weeks with contrast to further evaluate the groundglass opacities and ensure that the lymphadenopathy has improved. If she has persistent lymphadenopathy, I would recommend endobronchial ultrasound with transbronchial needle aspirations to evaluate for sarcoid/granulomas. Plan Thank you for the consult. Pulmonary will continue to follow. Admission and Anticipated Discharge Date Admission Date: August 18, 2023 Subjective Patient's breathing has greatly improved throughout the course of the night and day. She has not really ambulated today as of yet. She feels that her wheezing and cough has improved. Her sinus congestion is also improved as well, but she has not tried any of the nasal sprays. Review of Systems Review of Systems: All systems reviewed & are unremarkable except as noted in HPI & below Physical Exam Physical Exam: Constitutional: Patient appears to be of their stated age. Patient is in no apparent distress. Patient is well-developed. Eyes: Pupils are equal round and reactive to light. Conjunctivae are normal. Anicteric sclera. Ears nose, mouth and throat: Deferred Neck: Trachea is midline. Visual inspection is normal. Respiratory: Prolonged phase of exhalation. No wheeze. No increased work of breathing Cardiovascular: Regular rate and rhythm. No murmurs. No edema. Gastrointestinal: Normal bowel sounds, soft, nontender and nondistended. No hepatosplenomegaly noted. Musculoskeletal: No cyanosis. Patient is able to move all extremities. Strength is 5 out of 5 in the upper and lower extremities. Skin: No rashes, warm dry and intact. Neurologic: No obvious focal neurological deficits seen. Psychiatric: Alert and oriented x3 with a euthymic affect. Results & Data Results & Data Vital Signs (Past 12 Hours) Vital Signs Temp Pulse Pulse Resp BP Pulse Ox O2 Del Method 08/19/23 08:13 79 18 96 Room Air 08/19/23 08:00 Room Air 08/19/23 07:35 36.4 C L 69 20 128/85 98 Room Air 08/19/23 07:00 81 08/19/23 03:20 36.4 C L 106 H 18 157/84 H 93 Room Air 08/18/23 23:09 36.9 C 90 16 144/87 H 96 Room Air 08/18/23 22:56 97 H PG Care Time/CCT Total # of Minutes Spent Total Time Spent with Patient: Total time spent is greater than 50% in coordination of care (as documented) at patient's floor/unit and/or counseling patient: Coding Level of Care Code 86306 SUB INP/OBS CARE 2/35MIN Diagnoses Severe persistent asthma with acute exacerbation J45.51 Asthma persistence: persistent Asthma severity: severe Tobacco abuse counseling Z71.6 Allergic rhinitis with postnasal drip J30.9; R09.82 Sinus congestion R09.[address] scan, chest R93.89
--- NOTE | 2023-08-19 12:58 | Hospitalist Progress Note ---
Date of Service August 19, 2023 Assessment & Plan (1) COPD exacerbation: Plan: Ms. Malcolm is a 48-year-old female with past med history significant for asthma, COPD comes with shortness of breath and found to be in COPD/asthma exacerbation and pneumonia. PEr admitting hospitalist: "Patient states in the last 1 year this is her fifth admission. 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 In May [place] in train she became, acutely sick and she has to be life flighted to hospital in [place] where she was on CPAP and and was in the hospital for 6 days as per patient. Then she was supposed to see her PCP in [place] but because of [place] appointment was canceled and and she was back on road. Her next appointment with her PCP is on August 20. Last Monday she had high temperature of 102. The next few days she had low-grade fevers after that the fever subsided but she is having profuse sweating and constant coughing bringing up thick yellowish-green mucus. When she is coughing she is feeling dizzy. The chest is hurting and chest pain is more when coughing. Walking short distance making her short of breath. She ran out of her inhalers. She using [id number] inhaler which is not as effective. Looks like she still using Advair Diskus but using only 1 puff daily. Smokes 1 pack of cigarettes in a week. " Patient with plans to discharge by Monday at this time. #Severe persistent Asthma Exacerbation #Tobacco Use Continue methylprednisone 40mg, decrease to q12h, then daily tomorrow Formoterol and budesonide nebs added Continue Azithro, transition to PO Discontinue CTX Pulm added zyrtec, montelukast Plan to increase inhaler fluticasone/salmeterol 500/50, 1 puff twice daily. Albuterol every 4 hours as needed, transition to prednisone 40 mg daily for an additional 5 days. #Prediabetes -A1C 6.1% lifestyle modifications discussed DVT prophylaxis Lovenox Disposition Med/tele Admission and Anticipated Discharge Date Admission Date: August 18, 2023 Subjective Patient evaluated at bedside Denies any acute concerns at this time and reports subjective improvement Denies any further chest pain, palpitations or other concerns Physical Exam Constitutional: WD/WN, vitals as above Respiratory: normal respiratory effort, lungs clear to auscultation Gastrointestinal (Abdomen): normal bowel sounds, soft, nontender, no hepatosplenomegaly Results & Data Results & Data Vital Signs (Past 12 Hours) Vital Signs Temp Pulse Pulse Resp BP Pulse Ox O2 Del Method 08/19/23 11:31 36.4 C L 78 19 127/78 95 Room Air 08/19/23 08:13 79 18 96 Room Air 08/19/23 08:00 Room Air 08/19/23 07:35 36.4 C L 69 20 128/85 98 Room Air 08/19/23 07:00 81 08/19/23 03:20 36.4 C L 106 H 18 157/84 H 93 Room Air Laboratory Results Short CBC 08/19/23 Range/Units 05:52 WBC 14.40 H D (4.8-10.8) K/ul Hgb 13.0 (12.0-16.0) g/dl Hct 39.6 (37.0-47.0) % Plt Count 283 (130-400) K/uL BMP 08/19/23 05:52 Sodium 141 Potassium 4.2 Chloride 107 Carbon Dioxide 26 BUN 13 Creatinine 0.79 Glucose 138 H Calcium 9.4 Medications Administered Home Medications Medication Instructions Recorded Confirmed Last Taken albuterol sulfate 90 mcg/actuation 2 puff inhalation DIRECTED PRN 08/17/23 08/17/23 Unknown aerosol inhaler Shortness Of Breath Or Wheezing fluticasone 250 mcg-salmeterol 50 1 inh inhalation DAILY 08/18/23 08/18/23 Unknown mcg/dose blistr powdr for inhalation Active Medications Generic Name Dose Route Start Last Admin Trade Name Ivan PRN Reason Stop Dose Admin Acetaminophen 1,000 mg 08/18/23 14:57 08/19/23 03:26 Acetaminophen 500 Mg Tab PO 09/17/23 04:26 1,000 mg Q8H PRN Administration Pain or Fever Azelastine HCl 1 sprays 08/18/23 14:30 08/19/23 10:18 Azelastine Hcl 0.1% Nasal 200 Sprays/27,400 Mcg Btl NA 09/17/23 14:29 Not Given DAILY BOB Budesonide 0.5 mg 08/18/23 19:00 08/19/23 08:09 Budesonide 0.5 Mg/2 Ml Vial (Pulmicort) NEB 09/17/23 18:59 0.5 mg BIDR BOB Administration Cetirizine HCl 10 mg 08/18/23 14:30 08/19/23 08:03 Cetirizine Hcl 10 Mg Tablet PO 09/17/23 14:29 10 mg QAM BOB Administration Enoxaparin Sodium 40 mg 08/18/23 09:00 08/19/23 08:02 Enoxaparin Inj 40 Mg/0.4 Ml Syr SQ 09/17/23 08:59 40 mg Q24H BOB Administration Fluticasone Propionate 2 sprays 08/18/23 14:30 08/19/23 10:18 Fluticasone Propionate Na Spr 16 Gm Btl NA 09/17/23 14:29 Not Given DAILY [facility] Formoterol Fumarate 20 mcg 08/18/23 19:00 08/19/23 08:09 Formoterol 20 Mcg/[address] [facility] 09/17/23 18:59 20 mcg BIDR BOB Administration Gabapentin 100 mg 08/18/23 21:00 08/19/23 08:02 Gabapentin 100 Mg Cap PO 09/17/23 20:59 100 mg BID [facility] Administration Ceftriaxone Sodium 2,000 mg/ 50 mls @ 100 mls/hr 08/18/23 05:00 08/19/23 05:32 Dextrose IV 08/25/23 04:59 Infused Q24H [facility] Infusion Protocol Insulin Aspart 0 units 08/18/23 11:30 08/19/23 07:59 Insulin Aspart Per Unit Charge SC 09/17/23 11:29 6 units ACHS [facility] Administration Insulin Glargine 6 units 08/18/23 09:00 08/19/23 08:00 Lantus Per Unit Charge SQ 09/17/23 08:59 6 units DAILY [facility] Administration Lidocaine 1 patch 08/19/23 09:00 08/19/23 10:18 Lidocaine 5% 1 Patch TD 09/18/23 08:59 Not Given QAM [facility] Miscellaneous 1 each 08/18/23 21:00 08/18/23 19:34 Remove Lidoderm Patch N/A 09/17/23 20:59 1 each DAILY@2100 [facility] Administration Montelukast Sodium 10 mg 08/18/23 21:00 08/18/23 19:33 Montelukast Sodium 10 Mg Tablet PO 09/17/23 20:59 10 mg HS BOB Administration Morphine Sulfate 2 mg 08/18/23 16:19 08/19/23 09:54 Morphine Sulfate 2 Mg/Ml Carp IV 09/01/23 16:18 2 mg Q6H PRN Administration Severe Pain (Scale 7, 8, 9,10) Sodium Chloride 2 sprays 08/18/23 21:00 08/19/23 10:18 Sodium Chloride 0.65% Na Soln 45 Ml ([place]) NA 09/17/23 20:59 Not Given BID BOB
[2023-08-19] MEDS: methylPREDNISolone 40 MG in SYRINGE 0 ML IV SCH (20:40)
[2023-08-20] MEDS: AZITHROMYCIN 250 MG TAB PO SCH (08:21)
[2023-08-20] MEDS: predniSONE 20 MG TAB PO SCH (08:21)
[2023-08-20 08:50] LABS: BUN Creatinine Ratio 19.4 (10-20); Calcium 9.4 mg/dl (8.6-10.3); Creatinine Clr Calc Pharmacy 101.7 ml/min; Est GFR (African American) 113.2 ml/min; Est GFR (Non-African American) 97.7 ml/min; Potassium 4.2 mmol/L (3.5-5.1)
--- NOTE | 2023-08-20 11:34 | Pulmonology Progress Note ---
Date of Service August 20, 2023 Assessment & Plan (1) Asthma with exacerbation: Plan: She has very poorly controlled asthma due to ongoing tobacco abuse. We discussed that tobacco abuse cessation will be the single most important aspect and improving her respiratory symptoms overall and helping preserve her lung function. She is going to work on smoking cessation and follow-up with pulmonary medicine in her home state [facility]. Transition to p.o. prednisone at this time and continue for a 1 to 2-week taper. She certainly may have an element of COPD given her extensive tobacco abuse history and severity of her symptoms. She would benefit from outpatient PFTs, NIOX testing and evaluation for Th2 mediated asthma. Continue Zyrtec and montelukast. Upon discharge I would recommend escalating her inhaler to a dose of fluticasone/salmeterol 500/50, 1 puff twice daily. Albuterol every 4 hours as needed. Singulair 10 mg daily, Zyrtec 10 mg daily. Prednisone taper as outpatient. Discussed with hospitalist service. Asthma persistence: persistent Asthma severity: severe Qualified Code(s): J45.51 - Severe persistent asthma with (acute) exacerbation (2) Tobacco abuse counseling: Plan: We discussed smoking cessation extensively and potential smoking cessation aids such as nicotine patches and lozenges. (3) Allergic rhinitis with postnasal drip: Plan: I think her allergic rhinitis and sinus symptoms are playing a significant role in her recurrent exacerbations. She is at high risk for nasal polyposis. She may be a good candidate for Dupixent as an outpatient. For the time being, we will start the patient on Flonase, saline nasal sprays and azelastine. She notes that she has not been compliant with nasal sprays in the past as they are uncomfortable to her. She also notes that Flonase has not helped in the past, but she has only used it an intermittent dosing. I stressed the importance of using Flonase consistently as it is a topical corticosteroid which needs time to become effective. (4) Sinus congestion: Plan: See comments above. Will initiate Flonase, saline sprays and azelastine. (5) Abnormal CT scan, chest: Plan: We discussed her nonspecific groundglass opacities noted on CT chest. I suspect this is viral or inflammatory in nature. She does have some mild hilar and mediastinal lymphadenopathy. We discussed that this may potentially represent sarcoidosis or simply be reactionary to an acute infectious state. She would benefit from an outpatient follow-up CT chest in 6 weeks with contrast to further evaluate the groundglass opacities and ensure that the lymphadenopathy has improved. If she has persistent lymphadenopathy, I would recommend endobronchial ultrasound with transbronchial needle aspirations to evaluate for sarcoid/granulomas. Plan Patient safe for discharge home. No further recommendations at this time. Please call pulmonary questions. Thank you for the consult. Admission and Anticipated Discharge Date Admission Date: August 18, 2023 Subjective Patient seen and examined. Breathing is significantly better. Less wheezing. Able to ambulate around the hallways. Notices a very occasional cough. Review of Systems Review of Systems: All systems reviewed & are unremarkable except as noted in HPI & below Physical Exam Physical Exam: Constitutional: Patient appears to be of their stated age. Patient is in no apparent distress. Patient is well-developed. Eyes: Pupils are equal round and reactive to light. Conjunctivae are normal. Anicteric sclera. Ears nose, mouth and throat: Deferred Neck: Trachea is midline. Visual inspection is normal. Respiratory: Prolonged phase of exhalation. No wheeze. No increased work of breathing Cardiovascular: Regular rate and rhythm. No murmurs. No edema. Gastrointestinal: Normal bowel sounds, soft, nontender and nondistended. No hepatosplenomegaly noted. Musculoskeletal: No cyanosis. Patient is able to move all extremities. Strength is 5 out of 5 in the upper and lower extremities. Skin: No rashes, warm dry and intact. Neurologic: No obvious focal neurological deficits seen. Psychiatric: Alert and oriented x3 with a euthymic affect. Results & Data Results & Data Vital Signs (Past 12 Hours) Vital Signs Temp Pulse Pulse Resp BP Pulse Ox O2 Del Method 08/20/23 07:37 36.6 C 80 20 149/92 H 94 Room Air 08/20/23 07:16 64 18 97 Room Air 08/20/23 07:00 Room Air 08/20/23 07:00 55 L 08/20/23 02:55 36.4 C L 74 16 132/81 98 Room Air PG Care Time/CCT Total # of Minutes Spent Total Time Spent with Patient: Total time spent is greater than 50% in coordination of care (as documented) at patient's floor/unit and/or counseling patient: Coding Level of Care Code 57170 SUB INP/OBS CARE 2/35MIN Diagnoses Severe persistent asthma with acute exacerbation J45.51 Asthma persistence: persistent Asthma severity: severe Tobacco abuse counseling Z71.6 Allergic rhinitis with postnasal drip J30.9; R09.82 Sinus congestion R09.[address] scan, chest R93.89
[2023-08-20] MEDS: CYCLOBENZAPRINE HCL 10 MG TAB PO STA (12:11)
--- NOTE | 2023-08-20 14:24 | Discharge Summary ---
Discharge Summary Date of Service August 20, 2023 Notes For Next Care Provider Medication Changes From Visit -Increased Advair to 500/50 -Added hydroxyzine 25mg q8h anxiety -Prednisone 40mg daily x 5 more days -Tessalon prn -Cetrizine 10mg daily -Montelukast 10mg daily -Flonase Recommended close follow up with Pulm Admission HPI Per Admitting Provider 48-year-old female with past med history significant for asthma, COPD comes with shortness of breath and found to be in COPD/asthma exacerbation and pneumonia. Patient states in the last 1 year this is her fifth admission. 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 Then she was supposed to see her PCP in [place] but because of [place] appointment was canceled and and she was back on road. Her next appointment with her PCP is on August 20. Last Monday she had high temperature of 102. The next few days she had low- grade fevers after that the fever subsided but she is having profuse sweating and constant coughing bringing up thick yellowish-green mucus. When she is coughing she is feeling dizzy. The chest is hurting and chest pain is more when coughing. Walking short distance making her short of breath. She ran out of her inhalers. She using oqss-shq-mhlwhur inhaler which is not as effective. Looks like she still using Advair Diskus but using only 1 puff daily. Smokes 1 pack of cigarettes in a week. Currently after steroids and nebs treatment in the ER she is feeling better. She still has some chest discomfort. Was able to talk in full sentences and give her history. Hemodynamically stable. Last week she had had severe headaches. Currently no headache. Has runny nose. Has scratchy throat. Having nausea. Currently no abdominal pain. Somewhat constipated. Denies any blood in the stools. Normal micturition. No swelling in the legs. Past medical history. As mentioned above Past surgical history. Tonsillectomy Family history. Mother had CABG and sarcoidosis. Father had heart transplant and from heart attack Social history. Smokes 1 pack cigarette in a week for many years. Denies alcohol use, denies any drug use Admission Exam Per Admitting Provider General- Not in acute distress Head- atraumatic Eyes- PERRL. ENT- oropharynx clear Neck- supple, no JVD. Lungs- clear to auscultation bilateral wheezing present, No crackles Heart- regular rhythm; no murmur, no gallop. Abdomen- normal bowel sounds, soft, nontender, no distension. Extremities- no pretibial edema, no erythema seen. Neuro- alert, oriented ; PERRL, no facial palsy; no dysarthria; moves extremities. Skin- warm & dry Principal Dx & Hospital Course #1 = Principal Diagnosis (1) COPD exacerbation: Ms. Malcolm is a 48-year-old female with past med history significant for asthma, COPD comes with shortness of breath and found to be in COPD/asthma exacerbation and pneumonia. PEr admitting hospitalist: "Patient states in the last 1 year this is her fifth admission. 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 Then she was supposed to see her PCP in [place] but because of [place] appointment was canceled and and she was back on road. Her next appointment with her PCP is on August 20. Last Monday she had high temperature of 102. The next few days she had low-grade fevers after that the fever subsided but she is having profuse sweating and constant coughing bringing up thick yellowish-green mucus. When she is coughing she is feeling dizzy. The chest is hurting and chest pain is more when coughing. Walking short distance making her short of breath. She ran out of her inhalers. She using [id number] inhaler which is not as effective. Looks like she still using Advair Diskus but using only 1 puff daily. Smokes 1 pack of cigarettes in a week. " Course unremarkable. Patient with notable response to steroids. long discussion regarding triggers had at bedside. #Severe persistent Asthma Exacerbation #Tobacco Use Continue methylprednisone 40mg, decrease to q12h, then daily tomorrow Formoterol and budesonide nebs added Completed 3 days of Azithro 500mg qd Discontinue CTX Pulm added zyrtec, montelukast Plan to increase inhaler fluticasone/salmeterol 500/50, 1 puff twice daily. Albuterol every 4 hours as needed, transition to prednisone 40 mg daily for an additional 5 days. #Prediabetes -A1C 6.1% lifestyle modifications discussed Discharge Exam Constitutional WD/WN, vitals as above Respiratory normal respiratory effort, lungs clear to auscultation Cardiovascular RRR, no murmur, no edema Gastrointestinal (Abdomen) normal bowel sounds, soft, nontender, no hepatosplenomegaly Updated Medication List Medication Instructions Recorded Confirmed Type albuterol sulfate 90 mcg/actuation 2 puff inhalation DIRECTED PRN 08/17/23 08/17/23 History aerosol inhaler Shortness Of Breath Or Wheezing cetirizine 10 mg tablet 10 mg PO QAM #30 tabs 08/19/23 Rx fluticasone 500 mcg-salmeterol 50 1 inh inhalation BID #60 ea 08/19/23 Rx mcg/dose blistr powdr for inhalation fluticasone propionate 50 2 spray NA DAILY 30 days #16 grams 08/19/23 Rx mcg/actuation nasal spray,suspension montelukast 10 mg tablet 10 mg PO HS #30 tabs 08/19/23 Rx prednisone 20 mg tablet 40 mg (2 x 20 mg) PO DAILY #8 tabs 08/19/23 Rx benzonatate 100 mg capsule 100 mg PO BID PRN cough #30 caps 08/20/23 Rx hydroxyzine HCl 25 mg tablet 25 mg PO Q8H PRN itching #30 tabs 08/20/23 Rx Hospital Stay Data Consultations 08/18/23 02:23 ED Decision to Admit Stat 08/18/23 08:00 Consult Pulmonology Routine Diagnostic Imagining Performed 08/18/23 00:47 CT angio chest PE protocol Stat Pending Results Patient Have Any Pending Studies at Discharge: No Discharge Instructions Given to Patient (Per Discharging Provider) You were admitted for Asthma/COPD Exacerbation You were treated with IV steroids and IV antibiotic, with noted improvement. Here are the following medication adjustments: Your fluticasone/salmeterol inhaler was increased in dose from 250/50, to 500/50 -Please take 1 inhalation two times a day Please start the following: Singular 10mg at bedtime Cetrizine (zyrtec) 10mg in the morning Flonase 1-2 sprays each nostril daily Continue the following steroid taper: -Prednisone 40mg (2 tablets) for 4 more days starting 08/20 It is imperative you quit smoking for your lungs. Additionally, your hemoglobin A1C was 6.1% which indicates prediabetes. We spent some time discussing dietary changes, this is pivotal to implement to prevent progression to diabetes. Attached are some points and tips about prediabetes. Total Time Total Time Spent Total Time Spent (In Minutes): 55
== END 2023-08-20 16:17 | disposition home or self-care (01) | DRG 190 ==
LOC: ED 21:41 → EDINP 08-18 03:35 → 2S 08-18 04:28